=== PATIENT | female | born 1950 | race Caucasian/White ===

== ENCOUNTER 2018-07-15 01:20 | Inpatient (IN) | payer MEDICARE ==
[~2018-07-15] VITALS: Ht 162.6 cm; Wt 71.1 kg
[~2018-07-15 01:20] MED LIST: ALPR1TAB6 PO; LEVO50TA5 PO; OMEP40CA6 PO; SERT100T32 PO; TEMA15CA PO
--- NOTE | 2018-07-15 01:30 | NUR ---
[facility] CODE CARDIAC @0130 PG CARDIOLOGY @013
[2018-07-15] MEDS ORDERED: ASPIRIN 325 MG TABLET PO STA (01:34)
[2018-07-15 01:49] LABS: BASOPHILS # (AUTO) 0.13 x10^3/uL (0-0.1); BASOPHILS % (AUTO) 1 % (0-1); EOSINOPHILS # (AUTO) 0.15 x10^3/uL (0-0.4); EOSINOPHILS % (AUTO) 1 % (1-7); LYMPHOCYTES # (AUTO) 4.61 x10^3/uL (1-3.4); LYMPHOCYTES % (AUTO) 37 % (22-44); MD NO; MEAN CORPUSCULAR HEMOGLOBIN 33.8 pg (27.0-34.8); MEAN CORPUSCULAR VOLUME 99.3 fL (80-100); MEAN PLATELET VOLUME 7.3 fL (7.4-10.4); MONOCYTES # (AUTO) 0.99 x10^3/uL (0.2-0.8); MONOCYTES % (AUTO) 8 % (2-9); NEUTROPHILS # (AUTO) 6.53 x10^3/uL (1.8-6.8); NEUTROPHILS % (AUTO) 53 % (42-75); PLATELET COUNT 239 x10^3/uL (130-400); RED BLOOD COUNT 4.66 x10^6/uL (3.82-5.3); RED CELL DISTRIBUTION WIDTH 13.3 % (9.6-15.2)
[2018-07-15] MEDS ORDERED: ONDANSETRON 2MG/ML, 2ML ONE (01:52)
[2018-07-15] MEDS ORDERED: MORPHINE SULFATE 4 MG/ML, 1ML ONE (01:52)
[2018-07-15] MEDS ORDERED: NITROGLYCERIN 0.4 MG BOTTLE (25 TABS) SL PRN (02:00)
[2018-07-15] MEDS ORDERED: MORPHINE SULFATE 4 MG/ML, 1ML IVPush PRN ×2 (02:00→17:30)
[2018-07-15] MEDS ORDERED: ONDANSETRON 2MG/ML, 2ML IVPush ONE (02:00)
[2018-07-15 02:02] LABS: INTERNATIONAL NORMALIZED RATIO 0.89 (0.93-1.1); PROTHROMBIN TIME 9.5 Seconds (9.6-11.5)
[2018-07-15 02:04] LABS: TROPONIN I 0.046 ng/mL (0.000-0.045)
[2018-07-15] MEDS ORDERED: BIVALIRUDIN 250 MG ONE (02:07)
[2018-07-15] MEDS ORDERED: NITROGLYCERIN 5 MG/ML, 10ML ONE (02:07)
[2018-07-15] MEDS ORDERED: MIDAZOLAM 1 MG/ML, 5ML ONE (02:07)
[2018-07-15] MEDS ORDERED: FENTANYL PF 100 MCG/2ML ONE (02:07)
[2018-07-15] MEDS ORDERED: HEPARIN 1,000 UNITS/ML, 10ML ONE (02:07)
[2018-07-15] MEDS ORDERED: VERAPAMIL 2.5 MG/ML, 2ML ONE (02:07)
[2018-07-15] MEDS ORDERED: LIDOCAINE-MPF 1%, 5ML ONE (02:07)
[2018-07-15] MEDS ORDERED: TICAGRELOR 90 MG TABLET ONE (02:07)
[2018-07-15] MEDS ORDERED: ASPIRIN 81 MG TABLET CHEW ONE (02:27)
[2018-07-15] MEDS ORDERED: BISACODYL 5 MG EC TABLET PO PRN (03:30)
[2018-07-15] MEDS ORDERED: ACETAMINOPHEN 325 MG TABLET PO PRN (03:30)
[2018-07-15] MEDS ORDERED: NICOTINE 14MG/24 HR PATCH.TD24 TD ONE (03:30)
[2018-07-15] MEDS: ONDANSETRON 2MG/ML, 2ML IVPush PRN ×2 (03:34→11:05)
[2018-07-15] MEDS ORDERED: ATORVASTATIN 80 MG TABLET ONE (03:36)
[2018-07-15] MEDS ORDERED: ATORVASTATIN 80 MG TABLET PO ONE (03:41)
[2018-07-15 03:50] VITALS: BP 100/63
[2018-07-15 04:00] VITALS: BP 100/63
[2018-07-15] MEDS ORDERED: METOPROLOL TARTRATE 25 MG TABLET PO SCH (06:00)
[2018-07-15] MEDS: ASPIRIN 81 MG TABLET EC PO SCH (08:22)
[2018-07-15] MEDS: TICAGRELOR 90 MG TABLET PO SCH ×2 (08:22→20:31)
[2018-07-15] MEDS ORDERED: morphine SULFATE 10 MG/ML, 1ML IVPush ONE (12:00)
[2018-07-15] MEDS: CARVEDILOL 6.25 MG TABLET PO SCH (17:34)
[2018-07-15] MEDS: OMEPRAZOLE 20 MG CAPSULE.DR PO PRN (20:31)
[2018-07-15] MEDS: ATORVASTATIN 80 MG TABLET PO SCH (20:31)
[2018-07-16 04:00] VITALS: BP 112/55
[2018-07-16 04:37] LABS: ANION GAP 4 mmol/L (5-15); CALCIUM 8.2 mg/dL (8.5-10.1); CHLORIDE 111 mmol/L (98-107)
[2018-07-16] MEDS: CARVEDILOL 6.25 MG TABLET PO SCH ×2 (06:17→16:54)
[2018-07-16] MEDS: LEVOTHYROXINE 75 MCG TABLET PO SCH (06:17)
[2018-07-16] MEDS: TICAGRELOR 90 MG TABLET PO SCH ×2 (08:46→21:38)
[2018-07-16] MEDS: ASPIRIN 81 MG TABLET EC PO SCH (08:46)
[2018-07-16] MEDS: SERTRALINE 100MG TABLET PO SCH (08:47)
[2018-07-16] MEDS ORDERED: OMEPRAZOLE 20 MG CAPSULE.DR PO SCH (09:00)
[2018-07-16 16:52] VITALS: BP 124/75
[2018-07-16 19:55] VITALS: BP 127/79
[2018-07-16] MEDS ORDERED: TEMAZEPAM 15 MG CAPSULE PO SCH (21:00)
[2018-07-16] MEDS: ATORVASTATIN 80 MG TABLET PO SCH (21:38)
[2018-07-16] MEDS: OMEPRAZOLE 20 MG CAPSULE.DR PO PRN (21:42)
[2018-07-17 02:23] VITALS: BP 136/82
[2018-07-17] MEDS: CARVEDILOL 6.25 MG TABLET PO SCH (05:47)
[2018-07-17] MEDS: LEVOTHYROXINE 75 MCG TABLET PO SCH (05:47)
[2018-07-17] MEDS ORDERED: ATOR-2 PO (07:35)
[2018-07-17] MEDS ORDERED: ASPI81TA45 PO (07:35)
[2018-07-17] MEDS ORDERED: TICA90TA PO (07:35)
[2018-07-17] MEDS ORDERED: CARV6.2512 PO (07:35)
[2018-07-17] MEDS: ASPIRIN 81 MG TABLET EC PO SCH (07:46)
[2018-07-17] MEDS: SERTRALINE 100MG TABLET PO SCH (07:46)
[2018-07-17] MEDS: TICAGRELOR 90 MG TABLET PO SCH (07:46)
[2018-07-17 08:23] VITALS: BP 109/73
[2018-07-17] MEDS ORDERED: LEVOTHYROXINE 50 MCG TABLET PO SCH (09:00)
[2018-07-17] MEDS ORDERED: SERTRALINE 100MG TABLET PO SCH (09:00)
[2018-07-17] MEDS ORDERED: LISI5TAB7 PO (09:41)
== END 2018-07-17 10:50 | disposition still patient (30) | DRG 246 ==
LOC: ED 01:40 → EDIP 02:13 → CCU 03:20 → 5SO 07-16 14:06 → DCLOUNGE 07-17 10:16
PROVIDERS: ADMIT Internal Medicine Cardiovascular Disease; ATTEND Internal Medicine Cardiovascular Disease
PROC: 027135Z Dilation of Coronary Artery, Two Arteries with Two Drug-eluting Intraluminal Devices, Percutaneous Approach (ICD-10-PCS; principal; 2018-07-15)
PROC: 4A023N7 Measurement of Cardiac Sampling and Pressure, Left Heart, Percutaneous Approach (ICD-10-PCS; 2018-07-15)
PROC: B2111ZZ Fluoroscopy of Multiple Coronary Arteries using Low Osmolar Contrast (ICD-10-PCS; 2018-07-15)
PROC: B2151ZZ Fluoroscopy of Left Heart using Low Osmolar Contrast (ICD-10-PCS; 2018-07-15)
PROC: 5A2204Z Restoration of Cardiac Rhythm, Single (ICD-10-PCS; 2018-07-15)
DX: I21.09 ST elevation (STEMI) myocardial infarction involving other coronary artery of anterior wall (principal); I49.01 Ventricular fibrillation; E78.5 Hyperlipidemia, unspecified; D72.829 Elevated white blood cell count, unspecified; E03.9 Hypothyroidism, unspecified; E66.9 Obesity, unspecified; Z68.26 Body mass index [BMI] 26.0-26.9, adult; F32.9 Major depressive disorder, single episode, unspecified; F41.9 Anxiety disorder, unspecified; G47.00 Insomnia, unspecified; I10 Essential (primary) hypertension; I25.5 Ischemic cardiomyopathy; Z72.0 Tobacco use; Z80.41 Family history of malignant neoplasm of ovary
CPT/HCPCS: 36415; 71045; 80047; 80048; 84484; 85014; 85018; 85025; 85610; 85730; 87081; 93005; 93306; 93458; 96374; 96375; 99156; 99157; 99291; C1769; C1894; G0378; J0583; J1644; J2250; J2405; J3010; C1725; C1874; C1887; J2270; Q9967

== ENCOUNTER 2018-09-24 06:57 | Outpatient (CLI) | payer MEDICARE ==
[~2018-09-24 06:57] MED LIST changes: +ASPI81TA45 PO; +ATOR-2 PO; +CARV6.2512 PO; +LISI5TAB7 PO; +TICA90TA PO
== END 2018-09-24 23:59 | disposition home or self-care (01) ==
LOC: CVU 06:57
PROVIDERS: ATTEND Internal Medicine Cardiovascular Disease
DX: I65.23 Occlusion and stenosis of bilateral carotid arteries (principal); I10 Essential (primary) hypertension; I25.10 Atherosclerotic heart disease of native coronary artery without angina pectoris; E78.2 Mixed hyperlipidemia; Z95.5 Presence of coronary angioplasty implant and graft; Z87.891 Personal history of nicotine dependence
CPT/HCPCS: 76706; 93880; 93978

== ENCOUNTER 2020-09-23 10:03 | Outpatient (CLI) | payer MEDICARE ==
[~2020-09-23 10:03] MED LIST changes: +ALPR-585 PO; -ALPR1TAB6 PO; +OMEP40CA42 PO; -OMEP40CA6 PO
== END 2020-09-23 23:59 | disposition home or self-care (01) ==
LOC: CFH 10:03
PROVIDERS: ATTEND Internal Medicine
DX: Z12.31 Encounter for screening mammogram for malignant neoplasm of breast (principal); M81.0 Age-related osteoporosis without current pathological fracture; N95.8 Other specified menopausal and perimenopausal disorders
CPT/HCPCS: 77063; 77067; 77080